=== PATIENT | male | born 1995 | race Caucasian/White ===

== ENCOUNTER 2021-09-08 15:12 | Emergency (ER) | payer OTHER, SELFPAY ==
[2021-09-08 15:21] VITALS: BP 127/68; PULSE 86; RESP 16; TEMP 36.8; O2SAT 98
--- NOTE | 2021-09-08 16:10 | ED.URI ---
HPI - URI/Sore Throat General Chief Complaint: Upper Respiratory Infection Stated Complaint: cough,stuffy nose Time Seen by Provider: 09/08/21 16:00 Source: patient, RN notes reviewed and old records reviewed Mode of arrival: ambulatory Limitations: no limitations History of Present Illness HPI Narrative: 26-year-old male who presents to [facility] accompanied with 3-year-old son with complaints of sore throat, headache for the past 3 days, son is also ill at this time. Patient states he has had positive exposure to strep 1 week ago. Patient presents with cough, congestion, headache, sinus pressure, has taken Tylenol for his symptoms. Patient denies any known fevers,chills, or sweats, he denies any body aches. Patient has not had COVID vaccinations or any flu shot. MD elicited complaint: cough, sore throat, rhinorrhea, nasal congestion and sinus pain Related Data Allergies Allergy/AdvReac Type Severity Reaction Status Date / Time No Known Allergies Allergy Verified 09/08/21 15:44 Review of Systems Review of Systems: CONSTITUTIONAL: Denies fever, chills, or sweats. EYES: Denies visual changes, redness, or discharge. ENT: Positive rhinorrhea, congestion, sore throat, no otalgia. CARDIOVASCULAR: Denies chest pain, palpitations, or edema. RESPIRATORY: Positive for cough denies dyspnea. GASTROINTESTINAL: Denies abdominal pain, nausea, vomiting, or diarrhea. GENITOURINARY: Denies dysuria or hematuria. SKIN: Denies rash or itching. MUSCULOSKELETAL: Denies back pain, joint pain, or myalgia. NEUROLOGIC:Positive for headache,no numbness, or weakness. PSYCHIATRIC: Denies anxiety or depression. [facility] Past Medical History Medical History (Updated 09/09/21 @ 19:53 by Zehra Fernandes NP) No pertinent past medical history Surgical History Surgical History (Updated 09/09/21 @ 19:54 by Zehra Fernandes NP) No pertinent past surgical history Social History Social History (Updated 09/09/21 @ 19:55 by Zehra Fernandes NP) Smoking packs per day: 0.5 Smoking cigarettes per day: 10.0 Years smoked: 14 Smoking pack-years: 7.00 Smoking status: Current every day smoker Tobacco type: cigarettes Alcohol intake: current Alcohol use details: social Substance use type: does not use Living arrangements: with family Gender identity (if verbalized by the patient): Male Comments At time of signature, agree with nursing past medical, surgical, social and family history. There is no relevant family history pertinent to the presenting complaint Exam Narrative: GENERAL: Well-appearing, well-nourished, and in no acute distress. HEAD: Normocephalic, atraumatic. EYES: PERRLA and EOMI. ENT: Nares red with clear rhinorrhea no epistaxis. Mucous membranes moist.TM's normal with good light reflex, throat red no lesions or exudates, tonsils red and swollen. NECK: Supple.no lymphadenopathy CHEST: Clear to auscultation. No respiratory distress.SAO2 98% on room air HEART: Regular rate and rhythm. No murmur heard. Normal peripheral pulses. ABDOMEN: Soft, nontender, nondistended, normal active bowel sounds. EXTREMITIES: Normal range of motion. No edema. SKIN: Warm, dry, no rash. NEURO: No focal deficits. Alert and oriented x3. Course Course Level of Care: Express Care Visit Vital Signs Vital signs: Vital Signs Temperature 36.8 C 09/08/21 15:21 Pulse Rate 86 09/08/21 15:21 Respiratory Rate 16 09/08/21 15:21 Blood Pressure 127/68 09/08/21 15:21 Pulse Oximetry 98 09/08/21 15:21 Oxygen Delivery Room Air 09/08/21 15:21 Temperature 36.8 C 09/08/21 15:21 Pulse Rate 86 09/08/21 15:21 Respiratory Rate 16 09/08/21 15:21 Blood Pressure 127/68 09/08/21 15:21 Pulse Oximetry 98 09/08/21 15:21 Oxygen Delivery Room Air 09/08/21 15:21 MDM - URI/Sore Throat Differential Diagnosis Differential diagnosis: Likely upper respiratory infection, sinusitis, viral infection, pharyngitis and other
== END 2021-09-08 16:18 | disposition home or self-care (01) ==
PROVIDERS: Emergency Provider Registered Nurse; PCP Nurse Practitioner Family
DX: J02.9 Acute pharyngitis, unspecified (principal); Z20.818 Contact with and (suspected) exposure to other bacterial communicable diseases; F17.210 Nicotine dependence, cigarettes, uncomplicated; Z28.310 Unvaccinated for COVID-19
CPT/HCPCS: 87081; 87880; 99213; G0463

== ENCOUNTER 2024-04-05 16:34 | Emergency (ER) | payer OTHER, MEDICAID, SELFPAY ==
[2024-04-05 16:48] VITALS: BP 134/62; PULSE 96; RESP 20; TEMP 37.2; O2SAT 98
--- NOTE | 2024-04-05 17:46 | ED_ITS ---
HPI - General Adult General Chief complaint: Upper Respiratory Infection Stated complaint: cough/headache/diarrhea/nausea Time Seen by Provider: 04/05/24 17:47 Source: patient, RN notes reviewed and old records reviewed Mode of arrival: ambulatory Limitations: no limitations History of Present Illness HPI narrative: 29 year old male presents to [facility] care with complaints of 2 days of cough, headache, body aches, chills and sweats, neck pain with known exposure to Influenza from family members. Patient reports that he has been taking Mucinex, Tylenol and DayQuil for his symptoms.Patient reports no shortness of breath, SAO2 98% on room air, no tachypnea noted. MD complaint: fever, chills, body aches headache, cough, diarrhea neck pain. Onset (ago): day(s) (2) Severity scale (1-10): 8 Treatments prior to arrival: other (Mucinex, Tylenol, and DayQuil) Related Data Allergies Allergy/AdvReac Type Severity Reaction Status Date / Time No Known Allergies Allergy Verified 04/05/24 17:09 Review of Systems Review of Systems: CONSTITUTIONAL: Reports malaise, chills, sweats, or fever. EYES: Denies visual changes, redness, or discharge. ENT: Reports rhinorrhea, congestion, sinus pain,no otalgia and positive sore throat. CARDIOVASCULAR: Denies chest pain, palpitations, or edema. RESPIRATORY: Reports cough.? Denies dyspnea. GASTROINTESTINAL: Denies abdominal pain, nausea, vomiting,or diarrhea SKIN: Denies rash or itching. MUSCULOSKELETAL: Reports myalgia and neck pain. NEUROLOGIC: Reports headache. All systems reviewed & are unremarkable except as noted in HPI and below [facility] Past Medical History Medical History (Updated 04/06/24 @ 00:00 by [facility]) No pertinent past medical history Surgical History Surgical History (Updated 09/09/21 @ 19:54 by Zehra Fernandes NP) No pertinent past surgical history Social History Social History (Updated 04/07/24 @ 11:50 by Zehra Fernandes NP) Smoking packs per day: 0.5 Smoking cigarettes per day: 10.0 Years smoked: 14 Smoking pack-years: 7.00 Smoking status: Current every day smoker Tobacco type: cigarettes Alcohol intake: current Alcohol use details: social Substance use: current Substance use type: marijuana Living arrangements: with family Gender identity (if verbalized by the patient): Male Comments At time of signature, agree with nursing past medical, surgical, social and family history. There is no relevant family history pertinent to the presenting complaint Exam Narrative: GENERAL: Well-appearing, well-nourished,unkept appearance and in no acute dis tress. HEAD: Normocephalic EYES: PERRLA, conjunctivae clear ENT: Nares clear, turbinates edematous and erythematous, clear discharge. Mucous membranes moist. TM pearly lynn with dull light reflex bilaterally; no tragal tenderness. Oropharynx erythematous without lesions. Tonsils not enlarged and without exudate, no drooling, no hoarseness, no trismus, uvula midline.post nasal discharge noted NECK: Supple. No lymphadenopathy CHEST: Clear to auscultation, breath sounds equal. No wheezing, rhonchi, rales, or stridor. No respiratory distress, speaks in full sentences.SAO2 98% on room air, dry cough HEART: Regular rate and rhythm. No murmur heard. SKIN: Warm, dry, no rash. NEURO: Alert and oriented x3. PSYCH: Normal mood and affect Course Course Emergency Course: Patient is aware of diagnosis, understands and agrees to treatment plan.? Anticipatory guidance given.? Patient agrees to follow-up as directed and is aware of reasons to seek care at the emergency department. Portions of this record may have been created with voice recognition software Level of Care: Express Care Visit Vital Signs Vital signs: Vital Signs Temperature 37.2 C 04/05/24 16:48 Pulse Rate 96 04/05/24 16:48 Respiratory Rate 04/05/24 16:48 Blood Pressure 134/62 04/05/24 16:48 Pulse Oximetry 98 04/05/24 16:48 Oxygen Delivery Room Air 04/05/24 16:48 Temperature 37.2 C 04/05/24 16:48 Pulse Rate 96 04/05/24 16:48 Respiratory Rate 04/05/24 16:48 Blood Pressure 134/62 04/05/24 16:48 Pulse Oximetry 98 04/05/24 16:48 Oxygen Delivery Room Air 04/05/24 16:48 Reviewed Medical Decision Making Differential Diagnosis Differential Diagnosis: URI, viral infection, influenza COVID Medical Records Medical records reviewed: Yes I reviewed the external patient's medical records. Vital Signs Vital Signs: Vital Signs Temperature 37.2 C 04/05/24 16:48 Pulse Rate 96 04/05/24 16:48 Respiratory Rate 20 04/05/24 16:48 Blood Pressure 134/62 04/05/24 16:48 Pulse Oximetry 98 04/05/24 16:48 Oxygen Delivery Room Air 04/05/24 16:48 Temperature 37.2 C 04/05/24 16:48 Pulse Rate 96 04/05/24 16:48 Respiratory Rate 20 04/05/24 16:48 Blood Pressure 134/62 04/05/24 16:48 Pulse Oximetry 98 04/05/24 16:48 Oxygen Delivery Room Air 04/05/24 16:48 Lab Data Lab results reviewed: Yes I reviewed the patient's lab results. Lab results narrative: Influenza A positive, Influenza B negative, COVID antigen negative Labs: Lab Results 04/05/24 Range/Units 16:50 POC Influenza A Ag Positive (Negative) POC Influenza B Ag Negative (Negative) POC SARS CoV-2 Ag Negative (Negative) Critical Care Time Critical Care Time Critical Care Time: No Discharge Plan Discharge Clinical Impression: Influenza Patient Disposition: Home, Self-Care Condition: Stable Instructions: Antibiotic Form, Influenza (ED) Additional Instructions: Increase fluids especially juices and water [id number] cough and cold medicine of your choice for your symptoms Tylenol or ibuprofen for any fever pain Zyrtec Claritin or Barbara daily Continue your Mucinex daily may also can use DayQuil and NyQuil heat to the face 20-30 minutes 4-6 times a day for pain Salt water gargles, throat lozenges or throat sprays as desired Tamiflu as per request If your symptoms persist, change or worsen significantly before you can contact your personal physician then please, without delay, go to the emergency department for further evaluation. Follow-up with PCP in 7-10 days or sooner if needed Follow up with PCP soon in regards to your blood pressure which is elevated above threshold for referral. Blood pressure above 120/80 may indicate pre- hypertension. 134/62 some systolic elevation Patient Language: French Prescriptions: New oseltamivir [Tamiflu] 75 mg capsule 75 mg PO Q12H 5 Days Qty: 10 0RF Follow-up/Referrals: PHYSICIAN NOT ON STAFF,NONSTAFF [Primary Care Provider] - Time of Disposition: 17:57 Quality [place] Coma Scale Eyes: Open Verbal: Oriented and Alert Motor: Follows Commands Yudy Coma Total Score: 15
[2024-04-05 17:53] LABS: EDCOVIDSCREEN Negative (Negative); EDINFLUASCREEN Positive (Negative); EDINFLUBSCREEN Negative (Negative)
== END 2024-04-05 18:00 | disposition home or self-care (01) ==
PROVIDERS: Emergency Provider Registered Nurse
DX: J10.1 Influenza due to other identified influenza virus with other respiratory manifestations (principal); Z20.822 Contact with and (suspected) exposure to COVID-19; F17.210 Nicotine dependence, cigarettes, uncomplicated; F12.90 Cannabis use, unspecified, uncomplicated
CPT/HCPCS: 87426; 87804; 99213; G0463